=== PATIENT | female | born 1945 | race Asian ===

== ENCOUNTER 2020-07-23 11:40 | Emergency (ER) | payer OTHER ==
[~2020-07-23] VITALS: Ht 154.9 cm; Wt 56.7 kg
--- NOTE | 2020-07-23 11:41 | NUR ---
PT BIBA TO BED 11.
--- NOTE | 2020-07-23 11:54 | NUR ---
ERMD EVALUATING PT AT BEDSIDE.
--- NOTE | 2020-07-23 11:56 | NUR ---
75 Y/O F BIBA FROM HOME, PT STATES SHE FELL A WEEK AGO AND HAS BEEN HAVING PAIN ON L ANKLE, PAIN INCREASED YESTERDAY AND HAD NO TRANSPORT TO HOSPITAL SO SHE CALLED [facility]. DENIES SOB, COUGH, CHEST PAIN AND FEVERS. DENIES N/V/D. PT IS DIAPERED FOR INCONTINENCE. UPON INSPECTION, FOOT HAS SOME SWELLING, NO BRUISING, REDNESS OR LAC. PT DOES HAVE R KNEE ABRASION, NO ACTIVE BLEEDING OR DISCHARGE AT SITE. PT UNABLE TO AMBULATE. PMH: STROKE, R SIDE DEFICIT, HTN, DM2 NKA
[2020-07-23 12:42] VITALS: BP 210/87
[2020-07-23] MEDS: HYDROcodone/APAP 5/325 MG 1 TAB TAB PO ONE (13:33)
[2020-07-23] MEDS: ONDANSETRON 4 MG ODT PO ONE (13:34)
[2020-07-23] MEDS ORDERED: ACET-8386 PO (13:48)
--- NOTE | 2020-07-23 14:30 | NUR ---
Patient discharged with v/s stable. Written and verbal after care instructions given and explained. Patient alert, oriented and verbalized understanding of instructions. Wheel Chair Assisted with to car. All questions addressed prior to discharge. ID band removed. Patient advised to follow up with PMD. Rx of HYDROCODONE given. Patient educated on indication of medication including possible reaction and side effects. Opportunity to ask questions provided and answered.
[2020-07-23 14:49] VITALS: BP 210/87
== END 2020-07-23 14:20 | disposition home or self-care (01) ==
LOC: MED 11:40
DX: M79.89 Other specified soft tissue disorders (principal); E11.9 Type 2 diabetes mellitus without complications; I10 Essential (primary) hypertension; Z79.899 Other long term (current) drug therapy
CPT/HCPCS: 73630; 99283; Q0162